=== PATIENT | female | born 1995 ===

== ENCOUNTER 2017-12-05 12:18 | Emergency (ER) | payer OTHER ==
[2017-12-05 12:25] VITALS: O2SAT 99
[2017-12-05 13:02] LABS: HCG,QUALITATIVE URINE POSITIVE (NEGATIVE)
[2017-12-05 13:05] LABS: SQUAMOUS EPITHIAL 22 /hpf (0-5); URINE BACTERIA RARE (<OCC); URINE BILIRUBIN NEGATIVE (NEGATIVE); URINE BLOOD NEGATIVE (NEGATIVE); URINE CLARITY Hazy (Clear); URINE COLOR Yellow (YELLOW); URINE GLUCOSE (UA) NORMAL (Normal); URINE LEUKOCYTE ESTERASE TRACE Leu/uL (Negative); URINE PROTEIN NEGATIVE (NEGATIVE); URINE UROBILINOGEN NORMAL mg/dL (0.2-1.0)
[2017-12-05 13:37] LABS: BASO # 0.1 K/uL (0.0-0.2); BASO % 0.6 % (0.0-2.0); EOS # 0.1 K/uL (0.0-0.7); EOS % 0.8 % (0.0-4.0); HEMOGLOBIN 15.2 g/dL (11.0-16.0); LYMPH # 2.3 K/uL (1.0-4.3); LYMPH % 21.9 % (20.0-40.0); MEAN CELL VOLUME 89.8 fL (81.0-99.0); MEAN CORPUSCULAR HEMOGLOBIN 30.7 pg (27.0-31.0); MEAN CORPUSCULAR HGB CONC 34.2 g/dL (33.0-37.0); MEAN PLATELET VOLUME 8.7 fL (7.2-11.7); MONO # 0.6 K/uL (0.0-0.8); MONO % 5.6 % (0.0-10.0); NEUT # 7.6 K/uL (1.8-7.0); NEUT % 71.1 % (50.0-75.0); RBC 4.95 Mil/uL (3.80-5.20); RED CELL DISTRIBUTION WIDTH 12.9 % (11.5-14.5); WHITE BLOOD COUNT 10.7 K/uL (4.8-10.8)
[2017-12-05 14:24] LABS: ALBUMIN 5.3 g/dL (3.5-5.0); ALT/SGPT < 6 U/L (9-52); AST/SGOT 73 U/L (14-36); BLOOD UREA NITROGEN 11 mg/dL (7-17); CALCIUM 9.5 mg/dl (8.6-10.4); GFR AFRICAN-AMERICAN > 60; GFR NON-AFRICAN AMERICAN > 60
--- NOTE | 2017-12-05 16:13 | C.PDOC ---
History Of Present Illness 22 y/o female presents to the ER complaining of pelvic pain and frequent urination which has been present for the past 1 week. Patient describes the pelvic pain as "pressure." Patient reports that her LMP was 11/01/17. She denies having nausea, vomiting, diarrhea, dysuria, vaginal bleeding, and vaginal discharge. Time Seen by Provider: 12/05/17 12:29 Chief Complaint (Nursing): Female Genitourinary History Per: Patient History/Exam Limitations: no limitations Onset/Duration Of Symptoms: Days Current Symptoms Are (Timing): Still Present Severity: Moderate Past Medical History Reviewed: Historical Data, Nursing Documentation, Vital Signs Vital Signs: Last Vital Signs Temp 98.1 F 12/05/17 16:18 Pulse 77 12/05/17 16:18 Resp 18 12/05/17 16:18 BP 100/65 12/05/17 16:18 Pulse Ox 99 12/05/17 16:19 - Medical History PMH: No Chronic Diseases Surgical History: No Surg Hx Family History: States: No Known Family Hx - Social History Hx Alcohol Use: No Hx Substance Use: No - Immunization History Hx Tetanus Toxoid Vaccination: No Hx Influenza Vaccination: No Hx Pneumococcal Vaccination: No Review Of Systems Except As Marked, All Systems Reviewed And Found Negative. Gastrointestinal: Negative for: Nausea, Vomiting, Diarrhea Genitourinary: Positive for: Frequency, Pelvic Pain. Negative for: Dysuria, Hematuria, Vaginal Discharge, Vaginal Bleeding Physical Exam - Physical Exam Appears: Non-toxic, No Acute Distress, Other (comfortable) Skin: Normal Color, Warm Head: Atraumatic, Normacephalic Eye(s): bilateral: Normal Inspection Nose: Normal Oral Mucosa: Moist Neck: Supple Chest: Symmetrical Cardiovascular: Rhythm Regular Respiratory: Normal Breath Sounds, No Rales, No Rhonchi, No Wheezing Gastrointestinal/Abdominal: Soft, Tenderness (mild suprapubic tenderness), No Guarding, No Rebound, Other ((-) Wall's, (-) McBurney's) Neurological/Psych: Oriented x3, Normal Speech ED Course And Treatment - Laboratory Results Result Diagrams: 12/05/17 13:29 12/05/17 13:29 O2 Sat by Pulse Oximetry: 99 (RA) Pulse Ox Interpretation: Normal - CT Scan/US CT- Abd/ Pelv/ Transvag. Other Rad Studies (CT/US): Read By Radiologist, Radiology Report Reviewed CT/US Interpretation: HISTORY: , PELVIC PAIN. COMPARISON: None available. TECHNIQUE: Transabdominal and transvaginal. FINDINGS: UTERUS: Measures 7.8 x 3.2 x 5.2 cm. Normal in size and appearance. No fibroid or other mass lesion seen. ENDOMETRIUM: Measures 17 mm in diameter. Unremarkable. CERVIX: No cervical abnormality identified. RIGHT OVARY: Measures 3.5 x 2.3 x 3.0 cm. Corpus luteum identified, 2.5 x 1.7 x 2.1 cm. Normal flow. LEFT OVARY : Measures 2.5 x 1.6 x 3.1 cm. No solid mass. Normal flow. FREE FLUID: Minimal fluid in cul-de-sac. OTHER FINDINGS: None. IMPRESSION: No intrauterine gestation. Right ovarian corpus luteum. Minimal fluid in cul-de- sac. Otherwise unremarkable. Progress Note: Labs, UA, HCG- Qualitative Urine, and US - Abd/ Pelv. Transvag. ordered. Disposition Counseled Patient/Family Regarding: Studies Performed, Diagnosis, Need For Followup, Rx Given - Disposition Referrals: [facility] [Outside] Disposition: HOME/ ROUTINE Disposition Time: 16:30 Condition: STABLE Additional Instructions: FOLLOW UP WITH [facility] WITHIN 1 WEEK RETURN TO EMERGENCY ROOM IF SYMPTOMS WORSEN SEGUIMIENTO CON OB / CUSTOMER SOLUTIONS COORDINATOR DENTRO DE 1 SEMANA REGRESE AL GERRI DE EMERGENCIA SI LOS SNTOMAS EMPEORAN Prescriptions: Multivit/Folic Acid/I [ Plus] 1 tab PO DAILY #30 tab Instructions: Symptoms Forms: [facility] ([place]) Print Language: NEPALI - Clinical Impression Clinical Impression: - Scribe Statement The provider has reviewed the documentation as recorded by the Scribe Sly Daniel Provider Attestation: All medical record entries made by the Scribe were at my direction and personally dictated by me. I have reviewed the chart and agree that the record accurately reflects my personal performance of the history, physical exam, medical decision making, and the department course for this patient. I have also personally directed, reviewed, and agree with the discharge instructions and disposition.
[2017-12-05 16:18] VITALS: BP 100/65; PULSE 77; RESP 18; TEMP 98.1
--- NOTE | 2017-12-05 16:18 | US ---
HISTORY: , PELVIC PAIN COMPARISON: None available. TECHNIQUE: Transabdominal and transvaginal FINDINGS: UTERUS: Measures 7.8 x 3.2 x 5.2 cm. Normal in size and appearance. No fibroid or other mass lesion seen. ENDOMETRIUM: Measures 17 mm in diameter. Unremarkable. CERVIX: No cervical abnormality identified. RIGHT OVARY: Measures 3.5 x 2.3 x 3.0 cm. Corpus luteum identified, 2.5 x 1.7 x 2.1 cm. Normal flow. LEFT OVARY: Measures 2.5 x 1.6 x 3.1 cm. No solid mass. Normal flow. FREE FLUID: Minimal fluid in cul-de-sac. OTHER FINDINGS: None. IMPRESSION: No intrauterine gestation. Right ovarian corpus luteum. Minimal fluid in cul-de-sac. Otherwise unremarkable.
== END 2017-12-05 16:45 | disposition home or self-care (01) ==
LOC: C.ER 12:18
DX: O26.90 Pregnancy related conditions, unspecified, unspecified trimester (principal); Z3A.00 Weeks of gestation of pregnancy not specified